=== PATIENT | female | born 1945 | race Caucasian/White ===

== ENCOUNTER 2019-06-04 18:02 | Inpatient (IN) | payer MEDICARE ==
[~2019-06-04] VITALS: Ht 157.5 cm; Wt 83.5 kg
[2019-06-04 18:35] LABS: BASOPHILS 0.2 % (0-2); EOSINOPHILS 0.2 % (0-7); HEMATOCRIT 34.5 % (36.0-48.0); HEMOGLOBIN 11.6 g/dL (12-16); IMMATURE GRANULOCYTES 0.3 % (0-5); LYMPHOCYTES 12.3 % (15-50); MCH 33.2 pg (26.0-34.0); MCHC 33.6 g/dL (31.0-37.0); MCV 98.9 fL (80.0-100.0); MEAN PLATELET VOLUME 9.8 fL (7.4-10.4); MONOCYTES 14.6 % (2-11); NEUTROPHILS 72.4 % (40-80); PLATELET COUNT 181 10x3/uL (130-400); RBC 3.49 10x6/uL (4.00-5.40); RDW 12.7 % (11.5-14.5); WBC 10.8 10x3/uL (4.8-10.8)
[2019-06-04 18:43] LABS: ANION GAP 14.3 mmol/L (8-16); CALCIUM 8.6 mg/dL (8.5-10.1); CARBON DIOXIDE 27.9 mmol/L (21.0-32.0); CREATININE - SERUM 1.2 mg/dL (0.6-1.3); POTASSIUM - SERUM 4.2 mmol/L (3.5-5.1)
[2019-06-04 18:48] LABS: ALBUMIN 3.8 g/dL (3.4-5.0); BILIRUBIN - TOTAL 0.58 mg/dL (0.2-1.3); PROTEIN - SERUM 6.8 g/dL (6.4-8.2)
--- NOTE | 2019-06-04 19:00 | NUR ---
ASSUMED CARE OF PATIENT, RESTING QUIETLY WITH DAUGHTER AT BEDSIDE, C/O COUGH AND NOT FEELING WELL ALL OVER. CALL LIGHT WITHIN REACH.
--- NOTE | 2019-06-04 19:30 | NUR ---
RECEIVED FROM ER, PT IS A&O, DAUGHTER AT BEDSIDE, HISTORY IS COMPLETE, BED IS LOW, SRX2, CALL LIGHT IN REACH, WILL CONTINUE PLAN OF CARE
[2019-06-04 20:22] LABS: CKMB 1.2 U/L (0.0-3.6); CREATINE KINASE 96 UL (21-215); MAGNESIUM - SERUM 2.1 mg/dL (1.8-2.4); TROPONIN-I < 0.017 ng/mL (0.000-0.060)
[2019-06-04 20:27] LABS: APPEARANCE CLOUDY (CLEAR); COLOR YELLOW (YELLOW)
[2019-06-04 20:28] LABS: BILIRUBIN NEGATIVE (NEGATIVE); GLUCOSE NEGATIVE (NEGATIVE); KETONE MODERATE mg/dL (NEGATIVE); NITRITE NEGATIVE (NEGATIVE); PROTEIN TRACE mg/dL (NEGATIVE); SPECIFIC GRAVITY 1.015 (1.005-1.020); UROBILINOGEN NORMAL (NORMAL)
[2019-06-04 20:30] LABS: BACTERIA MODERATE /hpf (NEGATIVE); EPITHELIAL CELLS 0-5 /hpf (0-5); RED CELLS - URINE 0-5 /hpf (0-5)
--- NOTE | 2019-06-04 22:42 | NUR ---
ROCEPHIN INFUSION COMPLETED AT [id number]
[2019-06-05] VITALS (7 sets, daily range): BP systolic 128–156; BP diastolic 58–80; BMI 31.1
[2019-06-05] MEDS ORDERED: TRAZODONE HCL150 MG PO (02:47)
[2019-06-05] MEDS ORDERED: CELEXA20 MG PO ×2 (02:48→02:49)
[2019-06-05] MEDS ORDERED: NAMENDA10 MG PO (02:49)
[2019-06-05] MEDS ORDERED: FUROSEMIDE20 MG PO (02:50)
[2019-06-05] MEDS ORDERED: MECLIZINE HCL12.5 MG PO (02:52)
[2019-06-05] MEDS ORDERED: PREDNISONE10 MG (02:54)
[2019-06-05] MEDS ORDERED: VITAMIN D5000 UNIT PO (02:58)
[2019-06-05] MEDS ORDERED: MOBIC7.5 MG PO (02:59)
[2019-06-05] MEDS ORDERED: TOPROL XL50 MG PO (02:59)
[2019-06-05 06:05] LABS: BASOPHILS 0.1 % (0-2); EOSINOPHILS 0 % (0-7); HEMATOCRIT 33.3 % (36.0-48.0); HEMOGLOBIN 11.1 g/dL (12-16); IMMATURE GRANULOCYTES 0.1 % (0-5); LYMPHOCYTES 7.7 % (15-50); MCH 32.9 pg (26.0-34.0); MCHC 33.3 g/dL (31.0-37.0); MCV 98.8 fL (80.0-100.0); MEAN PLATELET VOLUME 10.2 fL (7.4-10.4); MONOCYTES 1.4 % (2-11); NEUTROPHILS 90.7 % (40-80); PLATELET COUNT 171 10x3/uL (130-400); RBC 3.37 10x6/uL (4.00-5.40); RDW 12.5 % (11.5-14.5)
[2019-06-05 06:15] LABS: WBC 7.1 10x3/uL (4.8-10.8)
[2019-06-05 06:24] LABS: ANION GAP 14.9 mmol/L (8-16); CALCIUM 8.4 mg/dL (8.5-10.1); CARBON DIOXIDE 26.2 mmol/L (21.0-32.0); MAGNESIUM - SERUM 2.3 mg/dL (1.8-2.4); PHOSPHOROUS 3.7 mg/dL (2.5-4.9); POTASSIUM - SERUM 4.1 mmol/L (3.5-5.1)
--- NOTE | 2019-06-05 07:07 | NUR ---
I have reviewed this patient and I concur with the Shift Assessment completed by the Licensed Practical Nurse today this shift.
[2019-06-05 14:16] LABS: % SATURATION 10 % (15-55); IRON 17 ug/dl (35-150); TOTAL IRON BIND CAPACITY 169 ug/dl (260-445); UNSAT IRON BIND CAPACITY 152 ug/dl (150-375)
--- NOTE | 2019-06-05 14:22 | NUR ---
ASSESSMENT DONE. DENIES NEEDS
--- NOTE | 2019-06-05 14:58 | NUR ---
I have reviewed this patient and I concur with the Shift Assessment completed by the Licensed Practical Nurse today this shift.
--- NOTE | 2019-06-05 18:35 | NUR ---
WITHOUT CHANGES OR DISTRESS NOTED AT THIS TIME. DENIES NEEDS
--- NOTE | 2019-06-05 19:30 | NUR ---
RECEIVED REPORT, WILL ASSUME CARE OF PT, DENIES ANY NEEDS AT THIS TIME, DAUGHTER AT TBED TIME, BED IS LOW, SRX2, CALL LIGHT IN REACH, WILL CONTINUE PLAN OF CARE
[2019-06-06] VITALS: BP 151/66
[2019-06-06 04:00] VITALS: BP 131/74
[2019-06-06 07:31] LABS: BASOPHILS 0.1 % (0-2); EOSINOPHILS 0.1 % (0-7); HEMATOCRIT 31.7 % (36.0-48.0); HEMOGLOBIN 10.8 g/dL (12-16); IMMATURE GRANULOCYTES 0.2 % (0-5); LYMPHOCYTES 14.5 % (15-50); MCH 33.1 pg (26.0-34.0); MCHC 34.1 g/dL (31.0-37.0); MCV 97.2 fL (80.0-100.0); MONOCYTES 11.9 % (2-11); NEUTROPHILS 73.2 % (40-80); PLATELET COUNT 174 10x3/uL (130-400); RBC 3.26 10x6/uL (4.00-5.40); RDW 11.9 % (11.5-14.5); WBC 8.4 10x3/uL (4.8-10.8)
--- NOTE | 2019-06-06 07:48 | NUR ---
ASSESSMENT DONE. DENIES NEEDS
[2019-06-06 07:52] LABS: ANION GAP 10.4 mmol/L (8-16); CALCIUM 7.9 mg/dL (8.5-10.1); CARBON DIOXIDE 28.5 mmol/L (21.0-32.0); CREATININE - SERUM 0.9 mg/dL (0.6-1.3); PHOSPHOROUS 3.5 mg/dL (2.5-4.9); POTASSIUM - SERUM 3.9 mmol/L (3.5-5.1)
[2019-06-06 08:27] VITALS: BP 169/78
--- NOTE | 2019-06-06 09:26 | NUR ---
I have reviewed this patient and I concur with the Shift Assessment completed by the Licensed Practical Nurse today this shift.
[2019-06-06 16:58] VITALS: BP 170/84
--- NOTE | 2019-06-06 19:15 | NUR ---
RECEIVED REPORT, WILL ASSUME CARE OF PT, SITTING IN CHAIR,COUGHING, WILL GIVE TESSALON PERLE ORDER,DENIES ANY NEEDS AT THIS TIME, DAUGHTER AT BEDSIDE, CALL LIGHT IN REACH, WILL CONTINUE PLAN OF CARE
[2019-06-06 20:00] VITALS: BP 161/61
--- NOTE | 2019-06-06 21:18 | NUR ---
WEBSITE DEVELOPER IN ROOM ASSISTING PT WITH SHOWER/LINEN CHANGE
--- NOTE | 2019-06-06 21:59 | NUR ---
DAUGHTER GOING HOME, BED ALARM IS ON, CALL LIGHT IN REACH, WILL CONTINUE PLAN OF CARE
--- NOTE | 2019-06-06 22:32 | NUR ---
ASSISTED PT TO BATHROOM AND BACK TO BED, ALARM IS BACK ON, CALL LIGHT IN REACH
--- NOTE | 2019-06-06 23:29 | NUR ---
ASSISTED TO BATHROOM/BACK TO BED, ALARM IS BACK ON
[2019-06-06 23:49] VITALS: BP 163/72
--- NOTE | 2019-06-07 02:44 | NUR ---
ASSISTED TO RESTROOM AND BACK TO BED, CALL LIGHT IN REACH, BED ALARM IS ON
[2019-06-07 04:39] VITALS: BP 127/64; BP 161/66
--- NOTE | 2019-06-07 05:00 | NUR ---
I have reviewed this patient and I concur with the Shift Assessment completed by the Licensed Practical Nurse today this shift.
[2019-06-07 06:11] LABS: BASOPHILS 0 % (0-2); EOSINOPHILS 0 % (0-7); HEMOGLOBIN 10.5 g/dL (12-16); IMMATURE GRANULOCYTES 0.4 % (0-5); LYMPHOCYTES 10.9 % (15-50); MCH 32.9 pg (26.0-34.0); MCHC 33.9 g/dL (31.0-37.0); MCV 97.2 fL (80.0-100.0); MEAN PLATELET VOLUME 9.9 fL (7.4-10.4); MONOCYTES 3.5 % (2-11); NEUTROPHILS 85.2 % (40-80); PLATELET COUNT 204 10x3/uL (130-400); RBC 3.19 10x6/uL (4.00-5.40); RDW 12.2 % (11.5-14.5)
[2019-06-07 06:34] LABS: ANION GAP 13.2 mmol/L (8-16); CALCIUM 7.9 mg/dL (8.5-10.1); CARBON DIOXIDE 25.9 mmol/L (21.0-32.0); CREATININE - SERUM 0.9 mg/dL (0.6-1.3); MAGNESIUM - SERUM 1.8 mg/dL (1.8-2.4); PHOSPHOROUS 3.5 mg/dL (2.5-4.9); POTASSIUM - SERUM 4.1 mmol/L (3.5-5.1)
[2019-06-07 06:45] LABS: WBC 5.4 10x3/uL (4.8-10.8)
--- NOTE | 2019-06-07 07:46 | NUR ---
ALERT AND ORIENTED. 02 AT 4/L MIN PER NC. IV OF NS AT 50 INFUSING INTO LEFT WRIST. BED ALARM ON. UP WITH ASSIST. PT HAS A PACEMAKER, NO NEEDS VOICED
[2019-06-07 08:43] VITALS: BP 179/76
[2019-06-07 12:29] VITALS: BP 137/65
--- NOTE | 2019-06-07 14:26 | NUR ---
I have reviewed this patient and I concur with the Shift Assessment complete by the Licensed Practical Nurse today this shift.
--- NOTE | 2019-06-07 16:19 | NUR ---
UP IN BEDSIDE CHAIR. NO NEEDS VOICE. FAMILY AT BEDSIDE. WILL YENI
[2019-06-07 17:35] VITALS: BP 117/70
[2019-06-07 20:00] VITALS: BP 154/61
--- NOTE | 2019-06-08 01:00 | NUR ---
UP TO BR WITH ASSIST.
--- NOTE | 2019-06-08 02:36 | NUR ---
UP WITH ASSIST TO BR.
[2019-06-08 04:00] VITALS: BP 167/77
[2019-06-08 06:03] LABS: BASOPHILS 0 % (0-2); EOSINOPHILS 0 % (0-7); HEMATOCRIT 32.8 % (36.0-48.0); IMMATURE GRANULOCYTES 0.7 % (0-5); LYMPHOCYTES 10.1 % (15-50); MCH 32.6 pg (26.0-34.0); MCHC 33.5 g/dL (31.0-37.0); MCV 97.3 fL (80.0-100.0); MEAN PLATELET VOLUME 9.9 fL (7.4-10.4); MONOCYTES 6.2 % (2-11); PLATELET COUNT 206 10x3/uL (130-400); RBC 3.37 10x6/uL (4.00-5.40); RDW 12.1 % (11.5-14.5)
[2019-06-08 06:30] LABS: ANION GAP 11.7 mmol/L (8-16); CARBON DIOXIDE 28.5 mmol/L (21.0-32.0); CREATININE - SERUM 0.9 mg/dL (0.6-1.3); PHOSPHOROUS 3.4 mg/dL (2.5-4.9); POTASSIUM - SERUM 4.2 mmol/L (3.5-5.1)
--- NOTE | 2019-06-08 07:57 | NUR ---
ASSESSMENT DONE. DENIES NEEDS
[2019-06-08 09:47] VITALS: BP 168/81
--- NOTE | 2019-06-08 11:29 | NUR ---
I have reviewed this patient and I concur with the Shift Assessment completed by the Licensed Practical Nurse today this shift.
[2019-06-08 13:04] VITALS: BP 147/75
[2019-06-08 13:44] VITALS: Ht 157.5 cm; Wt 83.5 kg
[2019-06-08 16:26] VITALS: BP 190/89
[2019-06-08 20:00] VITALS: BP 167/78
[2019-06-09] VITALS: BP 170/84
[2019-06-09 04:00] VITALS: BP 166/83
[2019-06-09 05:41] LABS: BASOPHILS 0.1 % (0-2); EOSINOPHILS 0 % (0-7); HEMATOCRIT 31.7 % (36.0-48.0); HEMOGLOBIN 10.5 g/dL (12-16); IMMATURE GRANULOCYTES 1.6 % (0-5); LYMPHOCYTES 8.1 % (15-50); MCH 32.3 pg (26.0-34.0); MCHC 33.1 g/dL (31.0-37.0); MCV 97.5 fL (80.0-100.0); MEAN PLATELET VOLUME 10.1 fL (7.4-10.4); MONOCYTES 7.2 % (2-11); PLATELET COUNT 200 10x3/uL (130-400); RBC 3.25 10x6/uL (4.00-5.40); RDW 12.2 % (11.5-14.5); WBC 8.8 10x3/uL (4.8-10.8)
[2019-06-09 05:49] LABS: ANION GAP 6.8 mmol/L (8-16); CALCIUM 8.1 mg/dL (8.5-10.1); CARBON DIOXIDE 32.7 mmol/L (21.0-32.0); CREATININE - SERUM 0.9 mg/dL (0.6-1.3); MAGNESIUM - SERUM 2.2 mg/dL (1.8-2.4); PHOSPHOROUS 2.9 mg/dL (2.5-4.9); POTASSIUM - SERUM 4.5 mmol/L (3.5-5.1)
--- NOTE | 2019-06-09 07:25 | NUR ---
ASSESSMENT DONE. DENIES NEEDS
[2019-06-09 09:18] VITALS: BP 128/74
--- NOTE | 2019-06-09 09:51 | NUR ---
I have reviewed this patient and I concur with the Shift Assessment completed by the Licensed Practical Nurse today this shift.
[2019-06-09 12:12] VITALS: BP 140/85
[2019-06-09 16:19] VITALS: BP 140/56
--- NOTE | 2019-06-09 16:46 | NUR ---
WITHOUT CHANGES OR DISTRESS NOTED AT THIS TIME. DENIES NEEDS
--- NOTE | 2019-06-09 16:59 | MORECARE ---
CASE MANAGEMENT DISCHARGE SUMMARY PATIENT: CASEY WILSON UNIT: [id number] ADM DATE: 06/04/19 AGE: 73 : 43 SEX: F ROOM/BED: D.4895 AUTHOR: ALONSO GRIDER PHYSICIAN: REFERRING PHYSICIAN: TRINA BURGER MD DATE OF SERVICE: 06/09/19 Discharge Plan Patient Name: CASEY WILSON Facility: [facility]:[place] : 1945 Planned Disposition: Home Anticipated Discharge Date: 06/10/19 Discharge Date: Expected LOS: 6 Initial Reviewer: [email or web address] Initial Review Date: 06/09/2019 Generated: 06/09/19 5:58 pm Patient Name: CASEY WILSON Page [phone] at 1655 All edits/amendments must be made on the electronic document DICTATION DATE: 06/09/191657 SPORTS INTERNSHIP: BRADLY 06/09/191657 RPT#: [id number] DC DATE: STATUS: ADM IN [facility] [address] [place] [address] END OF REPORT
--- NOTE | 2019-06-09 17:08 | MORECARE ---
CASE MANAGEMENT DISCHARGE SUMMARY PATIENT: CASEY WILSON UNIT: [id number] ADM DATE: 06/04/19 AGE: 73 : 43 SEX: F ROOM/BED: D.9215 AUTHOR: CHEO,DOC PHYSICIAN: REFERRING PHYSICIAN: TRINA BURGER MD DATE OF SERVICE: 06/09/19 Discharge Plan Patient Name: CASEY WILSON Facility: [facility]:[place] : 1945 Planned Disposition: Home Anticipated Discharge Date: 06/10/19 Discharge Date: Expected LOS: 6 Initial Reviewer: [email or web address] Initial Review Date: 06/09/2019 Generated: 06/09/19 6:07 pm Comments DCP- Discharge Planning Updated by [email or web address]: Bunny Miller on 06/09/19 4:[address] Patient Name: CASEY WILSON Admission Status: ER Accout number: [id number] Admission Date: 06-04-2019 : 1945 Admission Diagnosis: Attending: TRINA BURGER Current LOS: 5 Anticipated DC Date: 06-10-2019 Planned Disposition: Home Primary [place] [facility] [place] Discharge Planning Comments: CM MET WITH PT AND DAUGHTER IN ROOM TO DISCUSS DISCHARGE PLANNING AND NEEDS. CASEY WILSON provided verbal consent to discuss current and ongoing needs with/in the presence of: DAUGHTER CARMEN. PT REPORTS LIVING AT HOME INDEPENDENTLY WITH HER ADULT DAUGHTER. PT HAS NEBULIZER AND ROLLATOR WALKER WITH NO MEDICAL EQUIPMENT PROVIDER PREFERENCE. PT HAS NO OUTSIDE SERVICES ASSISTING IN THE HOME. CM DISCUSSED AVAILABILITY OF HOME HEALTH, REHAB SERVICES AND MEDICAL EQUIPMENT. PT DENIES DISCHARGE NEEDS AT THIS TIME, REPORTS HER DAUGHTER WILL PICK HER UP FOR DISCHARGE HOME. IMPORTANT MESSAGE FROM MEDICARE PROVIDED AND EXPLAINED. Scleroscope Tester: Bunny Miller DCPIA - Discharge Planning Initial Assessment Updated by [email or web address]: Bunny Miller on 06/09/19 5:00 pm * Is the patient Alert and Oriented? Yes * How many steps to enter\exit or inside your home? NONE * PCP DR. NIELSEN IN [place] * Pharmacy [facility] [address] * Preadmission Environment Home with Family * ADLs Independent * Equipment Nebulizer Walker * Other Equipment NO MEDICAL EQUIOPMENT PROVIDER PREFERENCE * List name and contact numbers for known caregivers / representatives who currently or will assist patient after discharge: CARMEN HANSON, DTR, * Verbal permission to speak to the caregivers and representatives has been obtained from the patient. Yes * Community resources currently utilized None * Please name any agencies selected above. NONE * Additional services required to return to the preadmission environment? No * Can the patient safely return to the preadmission environment? Yes * Has this patient been hospitalized within the prior 30 days at any hospital? No Coverage Notice Reviewer: [id number] Evin Miller Notice Issued Date-Time: 06/09/2019 16:50 Notice Type: IM Discharge Notice Notice Delivered To: Patient Relationship to Patient: Journeyman Patternmaker Name: Delivery Method: HAND - Hand Delivered Sophia Days: Prior Verbal Notification: Recipient Understood Notice: Yes Recipient Signature: Yes Med Rec Note Co-signed by Attending: Coverage Notice Comment: Last DP export: 06/09/19 3:59 p Patient Name: CASEY WILSON Page [phone] at 1708 All edits/amendments must be made on the electronic document DICTATION DATE: 06/09/191706 COMMUNICATION ANALYST: BRADLY 06/09/191706 RPT#: [id number] DC DATE: STATUS: ADM IN [facility] [address] [place] [address] END OF REPORT
--- NOTE | 2019-06-09 19:30 | NUR ---
RECEIVED BEDSIDE REPORT. PATIENT IS ALERT AND ORIENTED, RESTING COMFORTABLY IN BED. PATIENT RECEIVING SCHEDULED BREATHING TREATMENT AT THIS TIME. NO S/S OF DISTRESS. NO C/O PAIN. NEEDS MET. CALL LIGHT WITHIN REACH. WILL CPOC.
[2019-06-09 20:30] VITALS: BP 162/71
[2019-06-10 00:30] VITALS: BP 142/76
[2019-06-10 04:30] VITALS: BP 172/76
--- NOTE | 2019-06-10 07:10 | NUR ---
REPORT RECEIVED FROM VERTICAL PUNCH OPERATOR AND PATIENT CARE ASSUMED. PATIENT LAYING IN BED ON BACK WITH EYES CLOSED AND BREATHING EVENLY. DTR AT BS. WILL CONTINUE WITH PLAN OF CARE. SR UP X 2 BED IN LOW POSITION AND CALL LIGHT IN REACH.
[2019-06-10 07:46] VITALS: BP 178/81
[2019-06-10 11:45] VITALS: BP 144/67
--- NOTE | 2019-06-10 12:51 | NUR ---
PATIENT IS STABLE AND VSS. PATIENT AMBULATED IN HW WITH PT AND TOLERATED WELL. SON AT BS. PATIENT DENIES ANY NEEDS OR PAIN. WILL CONTINUE TO MONITOR. SR UP X 2 BED IN LOW POSITION AND CALL LIGHT IN REACH.
[2019-06-10 13:32] LABS: BASOPHILS 0.2 % (0-2); EOSINOPHILS 0.1 % (0-7); HEMOGLOBIN 11.8 g/dL (12-16); IMMATURE GRANULOCYTES 3.6 % (0-5); LYMPHOCYTES 6.1 % (15-50); MCH 32.6 pg (26.0-34.0); MCHC 32.8 g/dL (31.0-37.0); MCV 99.4 fL (80.0-100.0); MEAN PLATELET VOLUME 9.8 fL (7.4-10.4); MONOCYTES 10.1 % (2-11); NEUTROPHILS 79.9 % (40-80); RBC 3.62 10x6/uL (4.00-5.40); RDW 12.4 % (11.5-14.5)
[2019-06-10 13:38] LABS: PLATELET COUNT 276 10x3/uL (130-400); WBC 14.5 10x3/uL (4.8-10.8)
[2019-06-10 13:54] LABS: ANION GAP 12.4 mmol/L (8-16); CALCIUM 8.1 mg/dL (8.5-10.1); CARBON DIOXIDE 29.6 mmol/L (21.0-32.0)
--- NOTE | 2019-06-10 14:03 | NUR ---
Nutrition Follow-up: Pt reports appetite improving. Drinking at least 1 Ensure/day. Denies N/V/C/D although last BM 06/06. Diet: Cardiac, Ensure TID Wt: 184# (06/08) Labs noted: Glu 122, Ca 8.1 Meds noted: Prednisone, NS @ 50 -Continue current diet/supplement as tolerated. -Need new wt; noted daily wts ordered. -RD following.
[2019-06-10 15:38] VITALS: BP 150/76
--- NOTE | 2019-06-10 19:12 | NUR ---
AWAKE AND ALERT BED IS LOW AND LOCKED PT DENIES NEEDS AT THIS TIME
[2019-06-10 20:30] VITALS: BP 156/87
[2019-06-11] VITALS: BP 166/81
--- NOTE | 2019-06-11 03:22 | NUR ---
I have reviewed this patient and I concur with the Shift Assessment completed by the Licensed Practical Nurse today this shift.
--- NOTE | 2019-06-11 03:46 | NUR ---
RECHECK BP 174/80
[2019-06-11 04:30] VITALS: BP 181/89
[2019-06-11 05:12] LABS: BASOPHILS 0.1 % (0-2); EOSINOPHILS 0.5 % (0-7); HEMATOCRIT 32.2 % (36.0-48.0); HEMOGLOBIN 10.8 g/dL (12-16); IMMATURE GRANULOCYTES 5.6 % (0-5); LYMPHOCYTES 21.9 % (15-50); MCH 32.9 pg (26.0-34.0); MCHC 33.5 g/dL (31.0-37.0); MCV 98.2 fL (80.0-100.0); MEAN PLATELET VOLUME 9.8 fL (7.4-10.4); MONOCYTES 11.6 % (2-11); NEUTROPHILS 60.3 % (40-80); RBC 3.28 10x6/uL (4.00-5.40); RDW 12.3 % (11.5-14.5)
[2019-06-11 05:23] LABS: PLATELET COUNT 187 10x3/uL (130-400); WBC 8.3 10x3/uL (4.8-10.8)
[2019-06-11 05:32] LABS: ANION GAP 9.1 mmol/L (8-16); CALCIUM 7.9 mg/dL (8.5-10.1); CARBON DIOXIDE 33.6 mmol/L (21.0-32.0); CREATININE - SERUM 0.9 mg/dL (0.6-1.3); POTASSIUM - SERUM 3.7 mmol/L (3.5-5.1)
--- NOTE | 2019-06-11 07:10 | NUR ---
REPORT RECEIVED FROM PLUG MACHINE OPERATOR AND PATIENT CARE ASSUMED. PATIENT LAYING IN BED ON BACK WITH EYES CLOSED AND BREATHING EVENLY. WILL CONTINUE WITH PLAN OF CARE. SR UP X 2 BED IN LOW POSITION AND CALL LIGHT IN REACH.
[2019-06-11 08:00] VITALS: BP 118/53
[2019-06-11 12:00] VITALS: BP 144/65
[2019-06-11] MEDS ORDERED: PREDNISONE20 MG PO (13:15)
--- NOTE | 2019-06-11 13:33 | NUR ---
PATIENT IS STABLE AND VSS. PATIENT AMBULATING IN HALWAY WITH RT STAFF. PATIENT TOLERATING WELL AND O2 SAT RA IS 96%. WILL CONTINUE TO MONITOR. SR UP X 2 BED IN LOW POSITION AND CALL LIGHT IN REACH.
--- NOTE | 2019-06-11 13:53 | NUR ---
PT WALKED ON RA AROUND MED 2 UNIT 1 PAI GOW MANAGER STARING: SPo2 98% HR 60 FINISHING: SPo2 94% HR 58
--- NOTE | 2019-06-11 15:46 | NUR ---
PATIENT LAYING IN BED FLAT ON BACK WITH EYES CLOSED AND BREATHING EVENLY. VSS. RT DIONNEIN PATRICEG C/D/I. FAMILY AT BS. WILL CONTINUE TO MONITOR. SR UPX 2 BED IN LOW POSITION AND CALL LIGHT IN REACH.
--- NOTE | 2019-06-11 16:14 | NUR ---
PATIENT IS STABLE AND VSS. PATIENT SITTING UP IN BS CHAIR PLAYING CARDS WITH DTR. PATIENT IS STABLE AND VSS. PATIENT DENIES ANY NEEDS OR PAIN. WILL CONTINUE TO MONITOR. CALL LIGHT IN REACH.
--- NOTE | 2019-06-14 09:05 | MORECARE ---
CASE MANAGEMENT DISCHARGE SUMMARY PATIENT: CASEY WILSON UNIT: [id number] ADM DATE: 06/04/19 AGE: 73 : 43 SEX: F ROOM/BED: D.1596 AUTHOR: CHEO,DOC PHYSICIAN: REFERRING PHYSICIAN: TRINA BURGER MD DATE OF SERVICE: 06/14/19 Discharge Plan Patient Name: CASEY WILSON Facility: [facility]:[place] : 1945 Planned Disposition: Home Anticipated Discharge Date: 06/10/19 Discharge Date: 06/11/2019 Expected LOS: 6 Initial Reviewer: [email or web address] Initial Review Date: 06/09/2019 Generated: 06/14/19 10:05 am DCP- Discharge Planning Updated by [id number]: Bunny Miller on 06/09/19 4:[address] Patient Name: CASEY WILSON Admission Status: ER Accout number: [id number] Admission Date: 06-04-2019 : 1945 Admission Diagnosis: Attending: TRINA BURGER Current LOS: 5 Anticipated DC Date: 06-10-2019 Planned Disposition: Home Primary Insurance: [facility] [place] or [place]PO Discharge Planning Comments: CM MET WITH PT AND DAUGHTER IN ROOM TO DISCUSS DISCHARGE PLANNING AND NEEDS. CASEY WILSON provided verbal consent to discuss current and ongoing needs with/in the presence of: DAUGHTER CARMEN. PT REPORTS LIVING AT HOME INDEPENDENTLY WITH HER ADULT DAUGHTER. PT HAS NEBULIZER AND ROLLATOR WALKER WITH NO MEDICAL EQUIPMENT PROVIDER PREFERENCE. PT HAS NO OUTSIDE SERVICES ASSISTING IN THE HOME. CM DISCUSSED AVAILABILITY OF HOME HEALTH, REHAB SERVICES AND MEDICAL EQUIPMENT. PT DENIES DISCHARGE NEEDS AT THIS TIME, REPORTS HER DAUGHTER WILL PICK HER UP FOR DISCHARGE HOME. IMPORTANT MESSAGE FROM MEDICARE PROVIDED AND EXPLAINED. Front Line Leader: Bunny Miller DCPIA - Discharge Planning Initial Assessment Updated by [id number]: Bunny Miller on 06/09/19 5:00 pm * Is the patient Alert and Oriented? Yes * How many steps to enter\exit or inside your home? NONE * PCP DR. NIELSEN IN [place] * Pharmacy [facility] [address] * Preadmission Environment Home with Family * ADLs Independent * Equipment Nebulizer Walker * Other Equipment NO MEDICAL EQUIOPMENT PROVIDER PREFERENCE * List name and contact numbers for known caregivers / representatives who currently or will assist patient after discharge: CARMEN PANDYAADITYA, DTR, * Verbal permission to speak to the caregivers and representatives has been obtained from the patient. Yes * Community resources currently utilized None * Please name any agencies selected above. NONE * Additional services required to return to the preadmission environment? No * Can the patient safely return to the preadmission environment? Yes * Has this patient been hospitalized within the prior 30 days at any hospital? No Coverage Notice Reviewer: [id number] Evin Miller Notice Issued Date-Time: 06/09/2019 16:50 Notice Type: IM Discharge Notice Notice Delivered To: Patient Relationship to Patient: Boilermaker Pipe Fitter Name: Delivery Method: HAND - Hand Delivered Sophia Days: Prior Verbal Notification: Recipient Understood Notice: Yes Recipient Signature: Yes Med Rec Note Co-signed by Attending: Coverage Notice Comment: Last DP export: 06/09/19 4:08 p Patient Name: CASEY WILSON Page [phone] at 0905 All edits/amendments must be made on the electronic document DICTATION DATE: 06/14/19904 HOUSE CALLS NURSE: BRADLY 06/14/19904 RPT#: [id number] DC DATE:06/11/19 STATUS: DIS IN [facility] [address] [place] [address] END OF REPORT
== END 2019-06-11 18:00 | disposition home or self-care (01) | DRG 190 ==
LOC: D.ER 18:02 → D.M2 21:15 → EDBD 21:15 → D.M2 06-11 18:00
PROVIDERS: Emergency Medicine; Family Medicine; ADMIT Internal Medicine Nephrology; ATTEND Internal Medicine Nephrology
DX: J44.0 Chronic obstructive pulmonary disease with (acute) lower respiratory infection (principal); J18.9 Pneumonia, unspecified organism; N39.0 Urinary tract infection, site not specified; N17.9 Acute kidney failure, unspecified; J98.11 Atelectasis; J44.1 Chronic obstructive pulmonary disease with (acute) exacerbation; J20.9 Acute bronchitis, unspecified; K21.9 Gastro-esophageal reflux disease without esophagitis; F03.90 Unspecified dementia, unspecified severity, without behavioral disturbance, psychotic disturbance, mood disturbance, and anxiety; F32.9 Major depressive disorder, single episode, unspecified; R91.1 Solitary pulmonary nodule; D50.9 Iron deficiency anemia, unspecified; B96.20 Unspecified Escherichia coli [E. coli] as the cause of diseases classified elsewhere; Z86.73 Personal history of transient ischemic attack (TIA), and cerebral infarction without residual deficits; Z95.0 Presence of cardiac pacemaker; Z87.891 Personal history of nicotine dependence

== ENCOUNTER 2019-07-18 13:46 | Emergency (ER) | payer MEDICARE, MEDICAID ==
[~2019-07-18] VITALS: Ht 157.5 cm; Wt 78.6 kg
[~2019-07-18 13:46] MED LIST: CELEXA20 MG PO; FUROSEMIDE20 MG PO; MECLIZINE HCL12.5 MG PO; MOBIC7.5 MG PO; NAMENDA10 MG PO; PREDNISONE10 MG; PREDNISONE20 MG PO; TOPROL XL50 MG PO; TRAZODONE HCL150 MG PO; VITAMIN D5000 UNIT PO
[2019-07-18 13:59] VITALS: Ht 157.5 cm; Wt 78.6 kg
[2019-07-18 14:38] LABS: BASOPHILS 0.6 % (0-2); EOSINOPHILS 0.2 % (0-7); HEMATOCRIT 35.2 % (36.0-48.0); HEMOGLOBIN 11.7 g/dL (12-16); IMMATURE GRANULOCYTES 0.2 % (0-5); LYMPHOCYTES 12.8 % (15-50); MCH 33.1 pg (26.0-34.0); MCHC 33.2 g/dL (31.0-37.0); MCV 99.4 fL (80.0-100.0); MEAN PLATELET VOLUME 9.7 fL (7.4-10.4); MONOCYTES 5.2 % (2-11); PLATELET COUNT 162 10x3/uL (130-400); RBC 3.54 10x6/uL (4.00-5.40); RDW 13.5 % (11.5-14.5); WBC 5.2 10x3/uL (4.8-10.8)
[2019-07-18 14:46] LABS: APTT 32.1 SECONDS (22.8-39.4); INR 0.98 (0.85-1.17); PROTIME 12.9 SECONDS (11.6-15.0)
[2019-07-18 15:00] LABS: CALC OSMOLALITY 279 mosm/kg (275-300); CALCIUM 9.1 mg/dL (8.5-10.1); CHLORIDE - SERUM 102 mmol/L (98-107); CREATININE - SERUM 1.2 mg/dL (0.6-1.3); GLUCOSE 112 mg/dL (74-106); POTASSIUM - SERUM 4.5 mmol/L (3.5-5.1); SODIUM 138 mmol/L (136-145); UREA NITROGEN 21 mg/dL (7-18); eGFR NON AFRICAN AMERICAN 46 mL/min (90-120)
[2019-07-18 15:15] LABS: ALBUMIN 4.1 g/dL (3.4-5.0); ALKALINE PHOSPHATASE 60 U/L (30-120); ALT (SGPT) 25 U/L (10-68); BILIRUBIN - TOTAL 0.44 mg/dL (0.2-1.3); CKMB 0.1 U/L (0.0-3.6); CREATINE KINASE 28 UL (21-215); PRO BNP 983 pg/mL (0-450); PROTEIN - SERUM 6.3 g/dL (6.4-8.2)
[2019-07-18 15:24] LABS: TROPONIN-I < 0.017 ng/mL (0.000-0.060)
[2019-07-18] MEDS ORDERED: TAMIFLU75 MG PO (16:04)
[2019-07-18 16:30] VITALS: BP 147/67
== END 2019-07-18 16:30 | disposition home or self-care (01) ==
LOC: D.ER 13:46
PROVIDERS: Family Medicine
DX: J10.1 Influenza due to other identified influenza virus with other respiratory manifestations (principal); Z86.73 Personal history of transient ischemic attack (TIA), and cerebral infarction without residual deficits; Z95.0 Presence of cardiac pacemaker; J45.909 Unspecified asthma, uncomplicated; K21.9 Gastro-esophageal reflux disease without esophagitis

== ENCOUNTER → 2019-10-18 12:25 | Outpatient (CLI) | payer MEDICARE ==
[2019-07-18 13:59] VITALS: BMI 31.7
[~2019-10-18 12:25] MED LIST changes: +TAMIFLU75 MG PO
== END | disposition home or self-care (01) ==
LOC: D.LABREF 12:25
PROVIDERS: ATTEND Internal Medicine Pulmonary Disease
DX: Z11.59 Encounter for screening for other viral diseases (principal)

== ENCOUNTER → 2019-10-19 09:13 | Outpatient (CLI) | payer MEDICARE ==
[2019-07-18 13:59] VITALS: BMI 31.7
== END | disposition home or self-care (01) ==
LOC: D.RT 07-22 10:00
PROVIDERS: ATTEND Internal Medicine Pulmonary Disease
DX: R93.89 Abnormal findings on diagnostic imaging of other specified body structures (principal); J45.909 Unspecified asthma, uncomplicated

== ENCOUNTER 2020-08-01 13:31 | Inpatient (IN) | payer MEDICARE ==
[~2020-08-01] VITALS: Ht 157.5 cm; Wt 73.5 kg
[~2020-08-01 13:31] MED LIST changes: +ASCORBIC ACID500 MG PO; +DECADRON4 MG PO; +DULERA 200 MCG8.8 GM INH; +ELIQUIS5 MG PO; +EZFE 200200 MG PO; +MELATONIN 3 MG1 TAB PO; +MUCINEX600 MG PO; +OMNICEF300 MG PO; +PROTONIX40 MG PO; +STROMECTOL 3 MG3 MG PO; +TESSALON PERLE100 MG PO; +VENTOLIN HFA [SP8 GM INH; +ZINC-220220 MG PO
--- NOTE | 2020-08-01 14:23 | NUR ---
TRAUMA BAND NUMBER - [id number]
[2020-08-01 14:30] VITALS: BP 141/77
[2020-08-01 15:30] VITALS: BP 156/70
[2020-08-01 15:41] LABS: PROTIME 12.2 SECONDS (11.6-15.0)
[2020-08-01 15:45] LABS: BASOPHILS 0.3 % (0-2); EOSINOPHILS 0.3 % (0-7); HEMATOCRIT 31.2 % (36.0-48.0); HEMOGLOBIN 10.5 g/dL (12-16); IMMATURE GRANULOCYTES 0.3 % (0-5); LYMPHOCYTE ABS# 0.76 10x3/uL (1.18-3.74); MCH 33.9 pg (26.0-34.0); MCHC 33.7 g/dL (31.0-37.0); MCV 100.6 fL (80.0-100.0); MEAN PLATELET VOLUME 9.5 fL (7.4-10.4); MONOCYTES 10.7 % (2-11); NEUTROPHIL ABS# 5.34 10x3/uL (1.56-6.13); NEUTROPHILS 77.4 % (40-80); RDW 13.7 % (11.5-14.5); WBC 6.9 10x3/uL (4.8-10.8)
[2020-08-01 15:46] LABS: PLATELET COUNT 106 10x3/uL (130-400)
[2020-08-01 15:51] LABS: ALBUMIN 3.3 g/dL (3.4-5.0); ANION GAP 10.4 mmol/L (8-16); BILIRUBIN - TOTAL 0.48 mg/dL (0.2-1.3); POTASSIUM - SERUM 4.5 mmol/L (3.5-5.1); PROTEIN - SERUM 5.7 g/dL (6.4-8.2)
[2020-08-01 15:52] LABS: CARBON DIOXIDE 28.1 mmol/L (21.0-32.0)
[2020-08-01 15:56] LABS: BILIRUBIN NEGATIVE (NEGATIVE); KETONE NEGATIVE (NEGATIVE); NITRITE NEGATIVE (NEGATIVE); UROBILINOGEN NORMAL mg/dL (< 2)
--- NOTE | 2020-08-01 17:22 | NUR ---
SANDWICH TRAY AND WATER PROVIDED. INFORMED PT ANS HER DAUGHTER OF NPO AFTER MIDNIGHT.
--- NOTE | 2020-08-01 19:00 | NUR ---
REPORT TO LAZ MERRITT
[2020-08-01 20:00] VITALS: BP 138/68
--- NOTE | 2020-08-01 20:00 | NUR ---
RECIEVED TO ROOM FROM ER ALERT WITH CONFUSION AT TIMES, ABLE TO REPORT FELL AND BROKE HIP, SEE ASSESSMENT, ORIENTIATED TO ROOM CALL LIGHT IN REACH
[2020-08-01] MEDS ORDERED: SYMBICORT 16010.2 GM IH (20:26)
[2020-08-02] VITALS (12 sets, daily range): BP systolic 101–141; BP diastolic 50–80; Ht 157.5 cm; Wt 73.5 kg
[2020-08-02 05:46] LABS: BASOPHILS 0.4 % (0-2); EOSINOPHILS 0.4 % (0-7); HEMATOCRIT 31.7 % (36.0-48.0); HEMOGLOBIN 10.3 g/dL (12-16); IMMATURE GRANULOCYTES 0.3 % (0-5); LYMPHOCYTE ABS# 0.79 10x3/uL (1.18-3.74); LYMPHOCYTES 10.2 % (15-50); MCH 32.9 pg (26.0-34.0); MCHC 32.5 g/dL (31.0-37.0); MCV 101.3 fL (80.0-100.0); MEAN PLATELET VOLUME 9.7 fL (7.4-10.4); MONOCYTES 14.5 % (2-11); NEUTROPHIL ABS# 5.75 10x3/uL (1.56-6.13); NEUTROPHILS 74.2 % (40-80); RBC 3.13 10x6/uL (4.00-5.40); RDW 13.9 % (11.5-14.5); WBC 7.7 10x3/uL (4.8-10.8)
[2020-08-02 05:58] LABS: APTT 23.9 SECONDS (22.8-39.4); INR 1.15 (0.85-1.17); PROTIME 13.6 SECONDS (11.6-15.0)
[2020-08-02 06:10] LABS: PLATELET COUNT 177 10x3/uL (130-400)
[2020-08-02 06:38] LABS: ALBUMIN 3.1 g/dL (3.4-5.0); ANION GAP 11.2 mmol/L (8-16); BILIRUBIN - TOTAL 0.74 mg/dL (0.2-1.3); CALCIUM 8.3 mg/dL (8.5-10.1); CARBON DIOXIDE 26.9 mmol/L (21.0-32.0); POTASSIUM - SERUM 4.1 mmol/L (3.5-5.1); PROTEIN - SERUM 5.6 g/dL (6.4-8.2)
--- NOTE | 2020-08-02 07:30 | NUR ---
AWAKE AND ALERT. ORIENTED TO SELF. CONFUSED TO TIME AND DATE. REORIENTED X3. LUNGS ARE CLEAR BILATERALLY, NO COUGH NOTED. USED IS INSTRUCTED. SKIN IS INTACT WITHOUT REDNESS. IV TO LEFT AC IS PATENT WITHOUT REDNESS AT INSERTION SITE. RON PATENT WITH CLEAR YELLOW URINE. DENIES NEEDS. OFF UNIT VIA BED FOR SURGERY.
--- NOTE | 2020-08-02 07:47 | HP ---
PATIENT: CASEY WILSON MEDICAL RECORD: [id number] ACCOUNT: [id number] LOCATION:[address] : [birth year] ADMISSION DATE: 08/01/20 PCP: LAMBERTO NIELSEN MD HISTORY AND PHYSICAL EXAMINATION DATE OF SERVICE: 08/01/2020 CHIEF COMPLAINT: Hip pain. HISTORY OF PRESENT ILLNESS: This is a 75-year-old female with history of dementia, who had suffered a ground level fall today. She has complained of left hip pain. She was brought to the Emergency Department where x-ray showed intertrochanteric fracture of proximal left femur. She is admitted. Her primary care doctor is Dr. Nielsen. PAST MEDICAL HISTORY: Hypertension, depression, dementia, TIA, asthma, reflux. PAST SURGICAL HISTORY: Pacemaker placement, hysterectomy, right hip replacement and knee surgery. HOME MEDICATIONS: Include Ventolin HFA two puffs q.i.d. p.r.n. wheeze, Eliquis 5 mg b.i.d., metoprolol succinate 50 mg once a day, citalopram 20 mg once a day, Symbicort 160/4.5 two puffs twice a day, vitamin C 500 mg b.i.d., vitamin D3 2500 units once a day. ALLERGIES: PENICILLIN. FAMILY HISTORY: Significant for diabetes and neurologic disorders. HABITS: No tobacco, alcohol or drugs. SOCIAL HISTORY: Unknown as her daughter is not here at this time. REVIEW OF SYSTEMS: Unobtainable in this patient who has dementia. PHYSICAL EXAMINATION: VITAL SIGNS: Temperature 98.2, pulse 59, respirations 18, blood pressure 156/70. GENERAL: She is awake and alert. She complains of pain in the left hip. HEENT: Grossly within normal limits. NECK: Supple. No JVD or bruit. HEART: Regular rate and rhythm without murmur. LUNGS: Clear. ABDOMEN: Soft, flat, nontender. EXTREMITIES: No pitting edema. There is tenderness in the left hip area and to move the left leg at all. LABORATORY AND DIAGNOSTIC DATA: CBC showed a white count of 6900, hemoglobin 10.5, hematocrit 31.2. Basic metabolic panel; sodium 135, potassium 4.5, chloride 101, CO2 28.1, BUN 15, creatinine 1.0, glucose 94, calcium 9.0. Liver functions were all normal. INR 1.00. Urinalysis is normal. X-ray of the left hip shows intertrochanteric fracture of the proximal left femur. ASSESSMENT: 1. Left femur fracture status post fall. HISTORY AND PHYSICAL [id number] CASEY WILSON 2. Dementia. 3. Hypertension. PLAN: Ortho has been consulted. She is cleared for surgery. Other tests or procedures as warranted. TRANSINT:[id number] Voice Confirmation ID: [id number] DOCUMENT ID: [id number] JIAN TINSLEY MD at 0747 CC: [id number] DICTATION DATE: 08/02/20 0036 SALES ADVISOR: 08/02/[address] [facility] [address] [place] [address]
--- NOTE | 2020-08-02 09:38 | NUR ---
LEFT BOTTON OF THRID TOE PRESSURE SORE NOTED PRIOR TO SURGERY START. KD
--- NOTE | 2020-08-02 10:43 | NUR ---
RETURNED FROM SURGERY. VSS.
--- NOTE | 2020-08-02 16:16 | OP ---
PATIENT NAME: CASEY WILSON MEDICAL RECORD: [id number] :41 LOCATION:D.M3 D.1213 ADMISSION DATE:08/01/20 SURGEON: SAUL MORENO DO DATE OF OPERATION: 08/02/2020 PROCEDURE PERFORMED: Left hip intramedullary nailing. PREOPERATIVE DIAGNOSIS: Left hip intertrochanteric fracture, reverse obliquity. POSTOPERATIVE DIAGNOSIS: Left hip intertrochanteric fracture, reverse obliquity. INDICATIONS: Ms. Wilson is a 75-year-old female who fell yesterday after kind of stubbing her toe I believe, twisting onto her left hip. She was brought to the ER and seen to have the reverse obliquity fracture of the hip IT area. I saw her yesterday and informed her of the risks of this including infection, bleeding, damage to nerves and vessels, need for further surgery, malunion, nonunion, continued pain, infection, blood clots and even , and she was aware of all that and signed the consent. SURGEON: Saul Moreno DO PROCEDURE IN DETAIL: The patient was taken to the operative suite. After given a block by anesthesia in preoperative area, given 2 grams of Ancef, laid in the supine position, sedated and intubated. She was then placed over the Joy table and a timeout was performed. Everyone was in agreeance with the correct side, site, patient and procedure. We then attempted to reduce the hip fracture, did not reduce well, so I decided to do it through the incision. The hip was then prepped and draped in sterile fashion. A timeout had already been performed. I then made an incision proximal to the hip and made careful dissection down to the trochanter got a good starting point. Once good starting point was adequate, I got the starting pin into the femoral shaft. I then got a reduction tool, reduced the fracture and put a B tip pin down and measured to be a 360 in length nail. I then reamed over that up to a 15 sequentially and then put down a 13 nail x 360. Once it was in good position. I then put in a lag screw through the jig, making a small incision over the lateral femur and put a guide pin up into the femoral head, confirmed to be in good position on AP and lateral. I then measured, put a 100 screw and reamed and then put the screw in. It was in good position. I then put an anti-rotational screw above that, 85-mm in length and then went distally and got perfect circles and put a distal screw in the dynamic hole. X-rays were then taken in AP and lateral of the hip and everything was in good position. Fracture was reduced. She did have a small spike anteriorly, but the hip was fracture spike. The hip was lined up well. I then irrigated and I closed the IT band with #1 Vicryl. Randy Little, certified nutritionist then closed the other incisions, small poke hole distally and two proximally with 2-0 Vicryl in inverted interrupted fashion and placed Prineo glue on them and dressed with Telfa and Tegaderm. She was awakened and taken to recovery in stable condition. Blood loss was approximately 200 mL. COMPLICATIONS: None. TRANSINT:[id number] Voice Confirmation ID: [id number] DOCUMENT ID: [id number] OPERATIVE REPORT [id number] CASEY WILSON MICHAEL D, DO at 1616 CC: [id number] DICTATION DATE: 08/02/20928 AIR POLLUTION AUDITOR: 08/02/20 1259 ADM IN [facility] [address] [place] [address]
--- NOTE | 2020-08-02 17:15 | NUR ---
ASSISTED WITH SUPPER PER STAFF. REQUESTED AND GIVEN ONE HYDROCODONE PO FOR C/O LEFT LEG PAIN LEVEL 7. WILL MONITOR. NO CHANGES NOTED.
--- NOTE | 2020-08-02 20:00 | NUR ---
ALERT CONFUSED AT TIMES, DENIES PAIN OR NEEDS, SEE SHIFT ASSESSMENT, YELLING OUT LOUDLEY WHEN SCD'S APPLIED STATING GET THEM OFF CANT STAND THAT, REMOVED REQUESTED
[2020-08-03 04:15] VITALS: BP 119/59
[2020-08-03 07:08] LABS: HEMOGLOBIN 8.3 g/dL (12-16); MCH 33.2 pg (26.0-34.0); MCHC 33.3 g/dL (31.0-37.0); MCV 99.6 fL (80.0-100.0); MEAN PLATELET VOLUME 9.4 fL (7.4-10.4); RDW 13.9 % (11.5-14.5)
[2020-08-03 07:09] LABS: HEMATOCRIT 24.9 % (36.0-48.0); RBC 2.5 10x6/uL (4.00-5.40); WBC 16.5 10x3/uL (4.8-10.8)
--- NOTE | 2020-08-03 07:30 | NUR ---
C/O PAIN TO LEFT THIGH AREA. GIVEN 5MG HYDROCODONE PO FOR SAME. WILL MONITOR. BREAKFAST SERVED IN ROOM. FEEDS SELF WITH SET UP ASSISTANCE.
--- NOTE | 2020-08-03 07:30 | NUR ---
AWAKE AND ALERT. ORIENTED TO SELF ONLY. ATTEMPTS TO REORIENT PER STAFF WITHOUT SUCCESS. PATIENT IS CONFUSED AND YELLS OUT AT TIMES. LUNGS ARE CLEAR BILATERALLY, NO COUGH NOTED. SKIN IS INTACT WITHOUT REDNESS EXCEPT 3 SMALL INCISIONS TO LEFT THIGH AREA. THESE ARE CLEAN AND DRY WITH DRESSINGS IN PLACE. IV TO LEFT FOREARM IS PATENT WITHOUT REDNESS AT INSERTION SITE. RON PATENT WITH CLEAR YELLOW URINE. NO NEEDS NOTED. BED ALARM ON AND FUNCTIONAL.
[2020-08-03 07:43] VITALS: BP 139/57
--- NOTE | 2020-08-03 09:00 | NUR ---
ATE ONLY A FEW BITES OF BREAKFAST. TOOK AM MEDS WITHOUT DIFFICULTY.
--- NOTE | 2020-08-03 11:00 | NUR ---
UP TO CHAIR AT BEDSIDE PER PT. UPPER INCISION OOZING SOME BLOOD. PRESSURE DRESSING APPLIED TO AREA AND DRESSING CHANGED. WILL MONITOR.
[2020-08-03 12:10] VITALS: BP 113/62
--- NOTE | 2020-08-03 12:30 | NUR ---
LUNCH SERVED IN ROOM. DAUGHTER HERE ASSISTED WITH MEAL. C/O PAIN TO RIGHT THIGH. GIVEN 5MG HYDROCODONE PO FOR SAME. WILL MONITOR.
--- NOTE | 2020-08-03 15:19 | NUR ---
PATIENT CONTINUES CONFUSED. DAUGHTER AT BEDSIDE. NO NEEDS NOTED.
--- NOTE | 2020-08-03 15:30 | NUR ---
IV TO LEFT FOREARM D/C WITH CATHETER INTACT R/T LEAKING.
--- NOTE | 2020-08-03 15:35 | NUR ---
CONTINUES TO BE CONFUSED. DAUGHTER HERE TO SIT FOR AWHILE. NO NEEDS NOTED.
--- NOTE | 2020-08-03 15:46 | NUR ---
SPOKE WITH DR. ARLETTE MIMS IV AND MARINE.
--- NOTE | 2020-08-03 17:00 | NUR ---
CONTINUES VERY CONFUSED. HIT STAFF. TRYING TO PULL RON OUT. ATTEMPTS TO REORIENT WITHOUT SUCCESS. WILL CONTINUE TO MONITOR.
--- NOTE | 2020-08-03 17:30 | NUR ---
THREW PLATE ON FLOOR AND BROKE IT. UNABLE TO REORIENT PER STAFF. WILL CONTINUE TO MONITOR..
[2020-08-03 17:54] VITALS: BP 118/60
--- NOTE | 2020-08-03 18:21 | NUR ---
CONTINUES CONFUSED. BROKE IS INTO PIECES AND WAS HOLDING THEM LIKE A WEAPON. NO CHANGES NOTED. NO NEEDS ASSESSED..
--- NOTE | 2020-08-03 20:00 | NUR ---
ALERT CONFUSED BUT CALM AT THIS TIME YELLS OUT OCC, SAYS YES LEG IS HURTING WHEN ASK IF HAVING ANY PAIN WILL MEDICATE ORDERED, SEE SHIFT ASSESSMENT WILL MONITOR
[2020-08-03 21:16] VITALS: BP 127/58
[2020-08-04 04:30] VITALS: BP 139/65
[2020-08-04 06:05] LABS: HEMATOCRIT 23.9 % (36.0-48.0); HEMOGLOBIN 8.1 g/dL (12-16); MCH 33.3 pg (26.0-34.0); MCHC 33.9 g/dL (31.0-37.0); MCV 98.4 fL (80.0-100.0); MEAN PLATELET VOLUME 9.5 fL (7.4-10.4); RBC 2.43 10x6/uL (4.00-5.40); RDW 13.8 % (11.5-14.5)
[2020-08-04 07:48] VITALS: BP 126/80
--- NOTE | 2020-08-04 08:00 | NUR ---
PT RESTING IN BED QUIETLY. PT REQUEST ASSISTANCE UP TO BSC. PT ASSISTED TO BSC WITH BM NOTED. LEG IMMOBILIZER NOTED TO LEFT LOWER EXTREMITY. EXTREMITY WARM TO TOUCH. PULSES PALPABLE. IV TO RIGHT FOREARM WITH NS @ 75ML/HR INFUSING VIA PUMP. SITE WITHOUT REDNESS OR EDEMA. DENIES NEED FOR PAIN MEDICATION AT THIS TIME. GUARD AT BEDSIDE. DENIES FURTHER NEEDS AT THIS TIME. GUARD HAS CL AND VOICES WILL CALL WITH NEEDS. CONTINUE POC
--- NOTE | 2020-08-04 08:20 | NUR ---
PT RESTING IN BED. AT TIMES HOLLERS OUT FOR VARIOUS PERSONS. WHEN STAFF ENTERS ROOM, PT ASK REGARDING WHERE "SAUL" IS. ATTEMPTED TO PROVIDE REALITY ORIENTATION, BUT PT IS ORIENTED TO PERSON PLACE AND TIME ONLY AT THIS TIME. PT DENIES ANY PAIN AT THIS TIME. DRESSING INTACT TO INCISION TO LEFT UPPER HIP, PUT HAS REMOVED DRESSING TO LOWER 2 [address]ISIONS[address] DRESSING. PT BREAKFAST BROUGHT TO ROOM. ASSISTED SITTING UP TRAY, BUT PT REFUSES TO ALLOW STAFF TO ASSIST WITH FEEDING, VOICING THAT SHE IS ABLE TO DO IT. DENIES FURTHER NEEDS AT THIS TIME. CL WITHIN REACH. ENCOURAGED TO CALL WITH NEEDS. CONTINUE POC
--- NOTE | 2020-08-04 09:28 | NUR ---
REHAB PRESCREENING Rehab referral received and chart reviewed. Ms. Proctor is a good candidate for acute inpatient rehab. I will begin her electronic screen. She can admit to rehab when approvals are in place and her physician feels she is appropriate for discharge. Thank you for this referral! Sarah Beth Beatty, COW WASHER Rehab PD
--- NOTE | 2020-08-04 10:23 | NUR ---
PHYSICAL THERAPY AT BEDSIDE
[2020-08-04 11:00] VITALS: BP 124/48
[2020-08-04] MEDS ORDERED: ELIQUIS2.5 MG PO (13:01)
--- NOTE | 2020-08-04 14:57 | NUR ---
OT NOTE: BED MOB WITH MAX ASSIST TO INCLUDE ROLLING FROM SIDE TO SIDE. UE AROM EXS WITH CONSTANT CUEING. NAVDEEP KOHLER, OTR/L
--- NOTE | 2020-08-04 16:02 | NUR ---
OT NOTE: PT REQUIRED EXTENSIVE VERBAL CUES FOR INCREASED SEQUENCING OF TSF. PT REQUIRED MAX A X2 FOR BASIC ADL MOB. 120-650 THANK YOU,DIAMOND CAMPBELL
== END 2020-08-04 15:27 | DRG 482 ==
LOC: D.ER 13:31 → D.M3 18:05
PROVIDERS: Emergency Medicine; Orthopaedic Surgery; ADMIT Family Medicine; ATTEND Family Medicine
PROC: 0QS706Z Reposition Left Upper Femur with Intramedullary Internal Fixation Device, Open Approach (ICD-10-PCS; principal; 2020-08-02 08:45)
DX: S72.142A Displaced intertrochanteric fracture of left femur, initial encounter for closed fracture (principal); W19.XXXA Unspecified fall, initial encounter; I10 Essential (primary) hypertension; F32.9 Major depressive disorder, single episode, unspecified; F03.90 Unspecified dementia, unspecified severity, without behavioral disturbance, psychotic disturbance, mood disturbance, and anxiety; J45.909 Unspecified asthma, uncomplicated; Z86.73 Personal history of transient ischemic attack (TIA), and cerebral infarction without residual deficits

== ENCOUNTER 2020-08-04 16:00 | Inpatient (IN) | payer MEDICARE ==
[~2020-08-04 16:00] MED LIST changes: +ELIQUIS2.5 MG PO; +SYMBICORT 16010.2 GM IH
[2020-08-07 07:28] LABS: BASOPHILS 0.4 % (0-2); EOSINOPHILS 2.7 % (0-7); HEMATOCRIT 26.8 % (36.0-48.0); HEMOGLOBIN 8.9 g/dL (12-16); IMMATURE GRANULOCYTES 0.7 % (0-5); LYMPHOCYTE ABS# 0.87 10x3/uL (1.18-3.74); LYMPHOCYTES 11.3 % (15-50); MCH 31.6 pg (26.0-34.0); MCHC 33.2 g/dL (31.0-37.0); MONOCYTES 15.8 % (2-11); NEUTROPHILS 69.1 % (40-80); PLATELET COUNT 214 10x3/uL (130-400); RBC 2.82 10x6/uL (4.00-5.40); RDW 15.8 % (11.5-14.5); WBC 7.7 10x3/uL (4.8-10.8)
[2020-08-07 07:37] LABS: CALC OSMOLALITY 273 mosm/kg (275-300); CALCIUM 8.6 mg/dL (8.5-10.1); CARBON DIOXIDE 26.4 mmol/L (21.0-32.0); CHLORIDE - SERUM 103 mmol/L (98-107); CREATININE - SERUM 0.7 mg/dL (0.6-1.3); GLUCOSE 96 mg/dL (74-106); POTASSIUM - SERUM 3.4 mmol/L (3.5-5.1); SODIUM 136 mmol/L (136-145); UREA NITROGEN 19 mg/dL (7-18); eGFR NON AFRICAN AMERICAN 86 mL/min (90-120)
[2020-08-08 06:44] LABS: CALC OSMOLALITY 271 mosm/kg (275-300); CALCIUM 8.4 mg/dL (8.5-10.1); CARBON DIOXIDE 25.8 mmol/L (21.0-32.0); CHLORIDE - SERUM 101 mmol/L (98-107); CREATININE - SERUM 0.7 mg/dL (0.6-1.3); GLUCOSE 100 mg/dL (74-106); MAGNESIUM - SERUM 1.8 mg/dL (1.8-2.4); POTASSIUM - SERUM 3.6 mmol/L (3.5-5.1); SODIUM 135 mmol/L (136-145); UREA NITROGEN 17 mg/dL (7-18); eGFR NON AFRICAN AMERICAN 86 mL/min (90-120)
[2020-08-08 06:46] LABS: BASOPHILS 0.4 % (0-2); EOSINOPHILS 1.9 % (0-7); HEMATOCRIT 27.1 % (36.0-48.0); HEMOGLOBIN 9.1 g/dL (12-16); IMMATURE GRANULOCYTES 0.7 % (0-5); LYMPHOCYTE ABS# 0.94 10x3/uL (1.18-3.74); LYMPHOCYTES 12.8 % (15-50); MCHC 33.6 g/dL (31.0-37.0); MCV 95.4 fL (80.0-100.0); MONOCYTES 13.2 % (2-11); NEUTROPHIL ABS# 5.21 10x3/uL (1.56-6.13); PLATELET COUNT 237 10x3/uL (130-400); RBC 2.84 10x6/uL (4.00-5.40); RDW 15.5 % (11.5-14.5); WBC 7.3 10x3/uL (4.8-10.8)
[2020-08-09 07:02] LABS: BASOPHILS 0.4 % (0-2); EOSINOPHILS 3.2 % (0-7); HEMATOCRIT 31.4 % (36.0-48.0); HEMOGLOBIN 10.6 g/dL (12-16); IMMATURE GRANULOCYTES 1.2 % (0-5); LYMPHOCYTES 18.2 % (15-50); MCH 32.3 pg (26.0-34.0); MCHC 33.8 g/dL (31.0-37.0); MCV 95.7 fL (80.0-100.0); MEAN PLATELET VOLUME 8.8 fL (7.4-10.4); MONOCYTES 15.2 % (2-11); NEUTROPHILS 61.8 % (40-80); RBC 3.28 10x6/uL (4.00-5.40); RDW 15.7 % (11.5-14.5)
[2020-08-09 07:04] LABS: PLATELET COUNT 311 10x3/uL (130-400); WBC 9.9 10x3/uL (4.8-10.8)
[2020-08-09 07:18] LABS: ANION GAP 15.2 mmol/L (8-16); CALCIUM 8.8 mg/dL (8.5-10.1); CARBON DIOXIDE 26.4 mmol/L (21.0-32.0); CREATININE - SERUM 0.8 mg/dL (0.6-1.3); POTASSIUM - SERUM 3.6 mmol/L (3.5-5.1)
[2020-08-11 05:56] LABS: BASOPHILS 0.7 % (0-2); EOSINOPHILS 3.6 % (0-7); HEMATOCRIT 28.5 % (36.0-48.0); HEMOGLOBIN 9.4 g/dL (12-16); IMMATURE GRANULOCYTES 1.1 % (0-5); LYMPHOCYTE ABS# 0.95 10x3/uL (1.18-3.74); LYMPHOCYTES 16.9 % (15-50); MCH 31.8 pg (26.0-34.0); MCV 96.3 fL (80.0-100.0); MEAN PLATELET VOLUME 8.4 fL (7.4-10.4); MONOCYTES 19.4 % (2-11); NEUTROPHIL ABS# 3.28 10x3/uL (1.56-6.13); NEUTROPHILS 58.3 % (40-80); PLATELET COUNT 262 10x3/uL (130-400); RBC 2.96 10x6/uL (4.00-5.40); RDW 15.6 % (11.5-14.5)
[2020-08-11 06:07] LABS: ANION GAP 7.1 mmol/L (8-16); CALCIUM 8.4 mg/dL (8.5-10.1); CARBON DIOXIDE 30.1 mmol/L (21.0-32.0); CREATININE - SERUM 0.8 mg/dL (0.6-1.3); MAGNESIUM - SERUM 1.9 mg/dL (1.8-2.4); POTASSIUM - SERUM 3.2 mmol/L (3.5-5.1)
[2020-08-11 06:20] LABS: WBC 5.6 10x3/uL (4.8-10.8)
[2020-08-12 06:02] LABS: BASOPHILS 0.7 % (0-2); HEMATOCRIT 28.5 % (36.0-48.0); HEMOGLOBIN 9.3 g/dL (12-16); IMMATURE GRANULOCYTES 0.9 % (0-5); LYMPHOCYTE ABS# 1.01 10x3/uL (1.18-3.74); LYMPHOCYTES 17.8 % (15-50); MCH 31.6 pg (26.0-34.0); MCHC 32.6 g/dL (31.0-37.0); MCV 96.9 fL (80.0-100.0); MEAN PLATELET VOLUME 8.8 fL (7.4-10.4); MONOCYTES 17.4 % (2-11); NEUTROPHIL ABS# 3.36 10x3/uL (1.56-6.13); NEUTROPHILS 59.2 % (40-80); PLATELET COUNT 278 10x3/uL (130-400); RBC 2.94 10x6/uL (4.00-5.40); RDW 15.7 % (11.5-14.5); WBC 5.7 10x3/uL (4.8-10.8)
[2020-08-12 06:10] LABS: CALC OSMOLALITY 280 mosm/kg (275-300); CALCIUM 8.6 mg/dL (8.5-10.1); CHLORIDE - SERUM 103 mmol/L (98-107); CREATININE - SERUM 0.7 mg/dL (0.6-1.3); GLUCOSE 92 mg/dL (74-106); POTASSIUM - SERUM 4.1 mmol/L (3.5-5.1); SODIUM 140 mmol/L (136-145); UREA NITROGEN 18 mg/dL (7-18); eGFR NON AFRICAN AMERICAN 86 mL/min (90-120)
[2020-08-14 07:13] LABS: BASOPHILS 0.8 % (0-2); HEMATOCRIT 29.9 % (36.0-48.0); HEMOGLOBIN 9.7 g/dL (12-16); IMMATURE GRANULOCYTES 0.5 % (0-5); LYMPHOCYTE ABS# 1.07 10x3/uL (1.18-3.74); LYMPHOCYTES 16.3 % (15-50); MCH 31.9 pg (26.0-34.0); MCHC 32.4 g/dL (31.0-37.0); MCV 98.4 fL (80.0-100.0); MEAN PLATELET VOLUME 8.7 fL (7.4-10.4); NEUTROPHIL ABS# 4.49 10x3/uL (1.56-6.13); NEUTROPHILS 68.4 % (40-80); PLATELET COUNT 299 10x3/uL (130-400); RBC 3.04 10x6/uL (4.00-5.40); RDW 15.7 % (11.5-14.5); WBC 6.6 10x3/uL (4.8-10.8)
[2020-08-14 07:21] LABS: CALC OSMOLALITY 275 mosm/kg (275-300); CALCIUM 8.8 mg/dL (8.5-10.1); CARBON DIOXIDE 31.4 mmol/L (21.0-32.0); CHLORIDE - SERUM 102 mmol/L (98-107); CREATININE - SERUM 0.7 mg/dL (0.6-1.3); GLUCOSE 98 mg/dL (74-106); POTASSIUM - SERUM 3.5 mmol/L (3.5-5.1); SODIUM 137 mmol/L (136-145); UREA NITROGEN 18 mg/dL (7-18); eGFR NON AFRICAN AMERICAN 86 mL/min (90-120)
[2020-08-15 07:01] LABS: ANION GAP 12.5 mmol/L (8-16); CALCIUM 8.8 mg/dL (8.5-10.1); CARBON DIOXIDE 26.5 mmol/L (21.0-32.0); CREATININE - SERUM 0.8 mg/dL (0.6-1.3)
[2020-08-15 07:08] LABS: BASOPHILS 0.6 % (0-2); EOSINOPHILS 3.5 % (0-7); HEMATOCRIT 30.1 % (36.0-48.0); HEMOGLOBIN 9.7 g/dL (12-16); IMMATURE GRANULOCYTES 0.6 % (0-5); LYMPHOCYTE ABS# 1.12 10x3/uL (1.18-3.74); LYMPHOCYTES 17.7 % (15-50); MCH 31.9 pg (26.0-34.0); MCHC 32.2 g/dL (31.0-37.0); MEAN PLATELET VOLUME 8.9 fL (7.4-10.4); MONOCYTES 14.2 % (2-11); NEUTROPHILS 63.4 % (40-80); PLATELET COUNT 288 10x3/uL (130-400); RBC 3.04 10x6/uL (4.00-5.40); RDW 15.6 % (11.5-14.5); WBC 6.3 10x3/uL (4.8-10.8)
[2020-08-16 05:37] LABS: BASOPHILS 0.7 % (0-2); EOSINOPHILS 4.8 % (0-7); HEMATOCRIT 29.2 % (36.0-48.0); HEMOGLOBIN 9.7 g/dL (12-16); IMMATURE GRANULOCYTES 0.5 % (0-5); LYMPHOCYTE ABS# 0.93 10x3/uL (1.18-3.74); LYMPHOCYTES 15.3 % (15-50); MCH 32.2 pg (26.0-34.0); MCHC 33.2 g/dL (31.0-37.0); MONOCYTES 14.5 % (2-11); NEUTROPHIL ABS# 3.91 10x3/uL (1.56-6.13); NEUTROPHILS 64.2 % (40-80); PLATELET COUNT 337 10x3/uL (130-400); RBC 3.01 10x6/uL (4.00-5.40); RDW 15.5 % (11.5-14.5); WBC 6.1 10x3/uL (4.8-10.8)
[2020-08-16 05:58] LABS: ANION GAP 10.6 mmol/L (8-16); CALCIUM 9.1 mg/dL (8.5-10.1); CREATININE - SERUM 0.9 mg/dL (0.6-1.3); POTASSIUM - SERUM 3.6 mmol/L (3.5-5.1)
[2020-08-18 06:33] LABS: EOSINOPHILS 6.3 % (0-7); HEMATOCRIT 32.3 % (36.0-48.0); HEMOGLOBIN 10.3 g/dL (12-16); IMMATURE GRANULOCYTES 0.4 % (0-5); LYMPHOCYTE ABS# 0.96 10x3/uL (1.18-3.74); LYMPHOCYTES 19.6 % (15-50); MCH 32.3 pg (26.0-34.0); MCHC 31.9 g/dL (31.0-37.0); MEAN PLATELET VOLUME 9.8 fL (7.4-10.4); MONOCYTES 19.4 % (2-11); NEUTROPHIL ABS# 2.61 10x3/uL (1.56-6.13); NEUTROPHILS 53.3 % (40-80); PLATELET COUNT 298 10x3/uL (130-400); RBC 3.19 10x6/uL (4.00-5.40); RDW 15.6 % (11.5-14.5); WBC 4.9 10x3/uL (4.8-10.8)
[2020-08-18 06:40] LABS: MCV 101.3 fL (80.0-100.0)
[2020-08-18 06:52] LABS: ANION GAP 15.4 mmol/L (8-16); CALCIUM 8.7 mg/dL (8.5-10.1); CARBON DIOXIDE 25.8 mmol/L (21.0-32.0); CREATININE - SERUM 0.9 mg/dL (0.6-1.3); POTASSIUM - SERUM 4.2 mmol/L (3.5-5.1)
[2020-08-21] MEDS ORDERED: HYDROCODON-ACE1 EA10 PO (08:32)
[2020-08-21] MEDS ORDERED: PERFOROMIS20 MCG/21 INH (08:32)
== END 2020-08-22 15:20 | disposition home health service (06) | DRG 561 ==
LOC: D.REHAB 16:00
PROVIDERS: ADMIT Emergency Medicine
DX: S72.142D Displaced intertrochanteric fracture of left femur, subsequent encounter for closed fracture with routine healing (principal); W19.XXXD Unspecified fall, subsequent encounter; I10 Essential (primary) hypertension; F03.90 Unspecified dementia, unspecified severity, without behavioral disturbance, psychotic disturbance, mood disturbance, and anxiety; J45.909 Unspecified asthma, uncomplicated; J44.9 Chronic obstructive pulmonary disease, unspecified; Z95.0 Presence of cardiac pacemaker